=== PATIENT | male | born 1990 | race Caucasian/White ===

== ENCOUNTER 2021-04-02 20:21 | Emergency (ER) | payer MEDICAID, SELFPAY ==
[2021-04-02 21:01] VITALS: BP 110/58; PULSE 58; RESP 16; TEMP 36.6; O2SAT 97; BMI 29.2
[2021-04-02 22:55] VITALS: BP 120/59; PULSE 64; RESP 16; TEMP 36.9; O2SAT 100
--- NOTE | 2021-04-02 23:18 | ED.SKABFB ---
HPI - Skin/Abscess/Foreign Bdy General Chief complaint: Skin/Abscess/Foreign Body Stated complaint: swollen leg Time Seen by Provider: 04/02/21 23:18 Source: patient and sales merchandising specialist Mode of arrival: ambulatory History of Present Illness HPI narrative: 30-year-old male with presentation of a small reddened and painful area on the left anterior thigh that is been ongoing for 4 days and patient denies any associated fever, chills. Patient states that he has had an ongoing lump there on his leg since he had a fracture 12 years ago. Related Data Previous Rx's Medication Instructions Recorded cephalexin 500 mg PO Q12H 5 Days #10 cap 04/03/21 Allergies Allergy/AdvReac Type Severity Reaction Status Date / Time No Known Allergies Allergy Verified 04/02/21 21:00 [No Known Allergies*] Review of Systems Review of Systems: Pertinent positives and negatives as stated in HPI 10 point review of systems otherwise negative. 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 GENERAL: Well developed, well nourished, in no acute distress. HEAD: Normocephalic/atraumatic EYES: PERRLA, EOMI LUNGS: Normal breath sounds. No adventitious sounds or accessory muscle use. SpO2<100> CARDIOVASCULAR: Regular rate and rhythm without noted murmurs ABDOMEN: Soft, non-tender, non-distended with bowel sounds. SKIN: Inspection of the skin reveals no rashes, but there is a area of induration at the left anterior thigh without appreciable fluctuance NEUROLOGIC: Alert and oriented x 4. Strength and sensation to light touch were grossly intact x 4. Course Course Course Narrative: 30-year-old male with history and clinical presentation consistent with likely infected sebaceous/ lipoma or possible folliculitis that is only indurated and not fluctuant. Who was explained to the patient that he would need to go home with antibiotics and apply warm moist compresses. Discharge Plan Discharge Clinical Impression: Abscess of skin or subcutaneous tissue Patient Disposition: Home, Self-Care Instructions: Abscess (ED), Warm Compress or Soak (ED) Additional Instructions: 1. recomiende el uso de Tylenol / ibuprofeno de venta samantha seg?n sea necesario para controlar el dolor. 2. Por favor, lang un seguimiento con el proveedor de atenci?n primaria en los pr?ximos 2-3 d?as para farzad reevaluaci?n y un manejo ambulatorio adicional. Regrese a la bob de emergencias por un empeoramiento leyx de los s?ntomas. Prescriptions: New cephalexin 500 mg capsule 500 mg PO Q12H 5 Days Qty: 10 RF: 0 Referrals: Physician,Unknown [Primary Care Provider] - 2 days Print Language: Mongolian
[2021-04-03] MEDS: cephALEXin 500 MG CAPSULE PO (00:21)
== END 2021-04-03 00:58 | disposition home or self-care (01) ==
PROVIDERS: Emergency Provider Student in an Organized Health Care Education/Training Program
DX: L02.416 Cutaneous abscess of left lower limb (principal); F17.210 Nicotine dependence, cigarettes, uncomplicated
CPT/HCPCS: 99283; 99284

== ENCOUNTER 2021-10-22 10:28 | Emergency (ER) | payer MEDICAID, SELFPAY ==
[2021-10-22 10:36] VITALS: BP 135/59; PULSE 97; RESP 18; TEMP 37.3; O2SAT 99; BMI 22.3
[2021-10-22 11:01] LABS: COVID-19 Test Positive (Negative); IDNOW Serial# 55D5AD1C
--- NOTE | 2021-10-22 11:28 | ED_ITS ---
HPI - URI/Sore Throat General Chief Complaint: Upper Respiratory Symptoms Stated Complaint: fever, headache Time Seen by Provider: 10/22/21 11:21 Source: patient Mode of arrival: ambulatory Limitations: language barrier (Sudanese Speaking ) History of Present Illness HPI Narrative: 31-year-old male presenting to the ED with URI symptoms since last night. He reports that he was playing his PlayStation and he was feeling completely fine although when he went to stand up he felt like he could not get up due to he was having back pain then it took him a few minutes then he was able to stand up and since then he has been having chills, sweats, sore throat and body aches along with back pain which has improved at this time. Denies recent travel or sick contacts. Reports that he is not vaccinated to COVID vaccine. Denies any measured fevers, dizziness, headache, neck pain/stiffness, trouble swallowing or breathing, chest pain or shortness of breath, palpitations, nausea/vomiting/diarrhea constipation, rashes or any other symptoms complaints or concerns at this time. MD elicited complaint: sore throat and other (Chills, sweats, body aches and lower back pain) Onset (ago): day(s) (Since last night) Consistency: constant, improved and progressively worsening Severity: mild Able to tolerate fluids by mouth: Yes Exacerbating factors: swallowing Relieving factors: nothing Associated symptoms: chills, myalgias and sore throat Treatments prior to arrival: none Related Data Previous Rx's Medication Instructions Recorded cephalexin 500 mg capsule 500 mg PO Q12H 5 Days #10 cap 04/03/21 acetaminophen 500 mg tablet 1,000 mg PO QID PRN #14 tab 10/22/21 (Tylenol Extra Strength) azithromycin 250 mg tablet See Rx Instructions .ROUTE 10/22/21 .COMPLEX #6 tab cyclobenzaprine 10 mg tablet 10 mg PO Q8H PRN #14 tab 10/22/21 ibuprofen 800 mg tablet 800 mg PO Q8H PRN #14 tab 10/22/21 Allergies Allergy/AdvReac Type Severity Reaction Status Date / Time No Known Allergies Allergy Verified 04/02/21 21:00 [No Known Allergies*] Review of Systems Review of Systems: Constitutional : Positive chills/fatigue/malaise/sweats No Weight loss, No Fever, ENT/Mouth : Positive sore throat, No Hearing loss, No Ear Pain, No Nasal Congestion, No Sinus Pain, No Hoarseness, No Rhinorrhea, No Swallowing Difficulty Eyes: No Eye Pain, No Swelling, No Redness, No Foreign Body, No Discharge, No Vision Changes Cardiovascular : No Chest Pain, No SOB, No Dyspnea on Exertion, No Orthopnea, No Edema, No Palpitations Respiratory : No Cough, No Sputum, No Wheezing, No Smoke Exposure, No Dyspnea Gastrointestinal : No Nausea, No Vomiting, No Diarrhea, No Constipation, No abdominal Pain, No Hematochezia, No Melena Genitourinary : no irregular bleeding, No Dysuria, No Urinary Frequency, No Hematuria, No Urinary Incontinence, No Urgency, No Flank Pain, No Urinary Flow Changes, No Hesitancy Musculoskeletal : Positive lower back pain, positive myalgias No joint pain, No Joint Swelling Skin : No Skin Lesions, No rash Neuro : No Weakness, No Numbness, No Paresthesias, No Loss of Consciousness, No Dizziness, No Headache Psych : No Anxiety/Panic, No Depression, No SI/HI/AH/VH, No Social Issues, Heme/Lymph: No Bruising, No Bleeding,No Lymphadenopathy Endocrine : No Polyuria, No Polydipsia, No Temperature Intolerance Yes all other systems are reviewed and are negative [facility] Past Medical History Attestation statement: The following information was validated with the patient. 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 Blood pressure 135/59. Heart rate normal. Respiration rate normal. Temperature normal. Oxygen saturation normal. Appearance: Alert. Oriented X3. No acute distress. Head: Normal external exam. Normocephalic. Atraumatic. Eyes: PERRLA. EOMI. Conjunctiva and sclera normal. Eyelids normal. ENT: EAC normal. TM's Normal. Pharynx normal. Uvula midline. Moist mucous membranes. No trismus noted. No drooling noted. No muffled voice noted. Neck: Normal inspection. Neck supple. FROM. No adenopathy. Thyroid Normal. No meningeal signs. No neck mass noted. CVS: Normal heart rate and rhythm. Heart sound normal. Pulses normal throughout. No murmurs/rales/gallops. Respiratory: No respiratory distress. Painless inspiration. Breath sounds normal. No wheezes/rales/rhonchi noted. Chest nontender. No accessory muscle usage noted or decreased air movement noted. Abdomen: Soft and nontender. Bowel sounds normal in all 4 quadrants. No distention noted. No organomegaly noted. No visible injury noted. Back: Full range of motion noted. No rashes/lesion/induration/fluctuance or s igns of infection noted. Skin: Skin warm and dry. Normal skin color. Normal skin turgor. No rashes/lesions/lacerations noted. Extremities: Extremities exhibit normal range of motion. Extremities nontender. Neuro: Oriented X 3. No motor deficit. No sensory deficit. Reflexes normal. Normal steady gait. No focal neuro deficits noted. Vascular: + radial pulses/+ 2 distal pedal pulses/+2 dorsalis pedis b/l. Normal cap refill. No cyanosis noted to upper extremity nails and lower extremity toes nails. Course Course Course Narrative: 31-year-old male presenting to the ED with URI symptoms since last night. He reports that he was playing his PlayStation and he was feeling completely fine although when he went to stand up he felt like he could not get up due to he was having back pain then it took him a few minutes then he was able to stand up and since then he has been having chills, sweats, sore throat and body aches along with back pain which has improved at this time. Denies recent travel or sick contacts. Reports that he is not vaccinated to COVID vaccine. Denies any measured fevers, dizziness, headache, neck pain/stiffness, trouble swallowing or breathing, chest pain or shortness of breath, palpitations, nausea/vomiting/diarrhea constipation, rashes or any other sympt oms complaints or concerns at this time. Patient is positive for COVID. Lungs clear to auscultation. CV RRR. Abdomen is soft and nontender. Vital signs are stable within normal limits. Will DC home with symptomatic treatment instructions follow-up with PCP and self isolate per CDC guidelines and to return if any new or worsening symptoms. Patient understands agrees with this plan. MDM - URI/Sore Throat Medical Records Attestation: I reviewed the patient's medical records. Lab Data Attestation: I reviewed the patient's lab results. Labs: Lab Results 10/22/21 Range/Units 10:42 COVID-19 ([facility]ITO) Positive A (Negative) COVID-19 Clin Com See Note Discharge Plan Discharge Clinical Impression: COVID-19 Patient Disposition: Home, Self-Care Instructions: COVID-19 (Coronavirus Disease 2019) (ED) Additional Instructions: Please follow CDC guidelines for restrictions. Prescriptions: New cyclobenzaprine 10 mg tablet 10 mg PO Q8H PRN (Reason: Muscle spasm) Qty: 14 RF: 0 azithromycin 250 mg tablet See Rx Instructions .ROUTE .COMPLEX Qty: 6 RF: 0 ibuprofen 800 mg tablet 800 mg PO Q8H PRN (Reason: pain) Qty: 14 RF: 0 acetaminophen [Tylenol Extra Strength] 500 mg tablet 1,000 mg PO QID PRN (Reason: fever or pain) Qty: 14 RF: 0 No Action cephalexin 500 mg capsule 500 mg PO Q12H 5 Days Qty: 10 RF: 0 Referrals: Physician,None [Primary Care Provider] - 2 days (your pcp) Stand Alone Forms: Work/School Release Print Language: Sudanese
== END 2021-10-22 11:51 | disposition home or self-care (01) ==
LOC: HO.ED 11:36
PROVIDERS: Emergency Provider Emergency Medicine Emergency Medical Services
DX: U07.1 COVID-19 (principal); F17.200 Nicotine dependence, unspecified, uncomplicated
CPT/HCPCS: 87635; 99283

== ENCOUNTER 2022-04-01 19:01 | Emergency (ER) | payer MEDICAID, SELFPAY ==
[2022-04-01 19:34] VITALS: BP 139/83; PULSE 59; RESP 18; TEMP 36.9; O2SAT 100; BMI 27.1
--- NOTE | 2022-04-01 21:02 | ED.DENTAL ---
HPI - Dental/Oral General Chief complaint: Dental/Oral Stated complaint: L facial pain Time Seen by Provider: 04/01/22 21:02 Source: patient Mode of arrival: ambulatory Limitations: no limitations History of Present Illness MD Complaint: tooth pain Location: Tooth # (16) Onset (ago): week(s) (1) Duration: worsening Severity: severe Relieving factors: nothing Exacerbating factors: chewing, cold, heat and drinking fluids Context: history of dental caries and poor dental care Associated symptoms: gum swelling and ear pain Treatment prior to arrival: other (ibuprofen) Related Data Previous Rx's Medication Instructions Recorded cephalexin 500 mg capsule 500 mg PO Q12H 5 days #10 caps 04/03/21 acetaminophen 500 mg tablet 1,000 mg PO QID PRN fever or pain 10/22/21 (Tylenol Extra Strength) #14 tabs azithromycin 250 mg tablet See Rx Instructions PO .COMPLEX #6 10/22/21 tabs cyclobenzaprine 10 mg tablet 10 mg PO Q8H PRN Muscle spasm #14 10/22/21 tabs ibuprofen 800 mg tablet 800 mg PO Q8H PRN pain #14 tabs 10/22/21 amoxicillin 875 mg-potassium 1 tab PO BID #14 tabs 04/01/22 clavulanate 125 mg tablet hydrocodone 5 mg-acetaminophen 325 1 tab PO Q6H PRN pain #6 tabs 04/01/22 mg tablet Allergies Allergy/AdvReac Type Severity Reaction Status Date / Time No Known Allergies Allergy Verified 04/01/22 19:39 [No Known Allergies*] Review of Systems Review of Systems: Constitutional : No Fever, No Chills ENT/Mouth : No swallowing difficulty, no change in voice, positive dental pain, positive jaw pain, positive facial swelling Eyes: No Eye Pain, No Swelling Cardiovascular : No Chest Pain, No SOB Respiratory : No Cough, No Sputum Gastrointestinal : No Nausea, No Vomiting, No Diarrhea Genitourinary : No Dysuria Musculoskeletal : No Myalgias Skin : No rash Neuro : No Weakness, No Numbness, No Headache PMFSH Past Medical History Attestation statement: The following information was validated with the patient. Medical History 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 Leg fracture, left Social History Social History Alcohol intake: never Patient Tobacco Use Status: Current everyday Tobacco user Advance Directives: No Advance Directives Information Provided: No Physical Exam Vital Signs: Vital Signs: Last Vital Signs Temp 98.5 F 04/01/22 19:34 Pulse 59 04/01/22 19:34 Resp 18 04/01/22 19:34 BP 139/83 04/01/22 19:34 Pulse Ox 100 04/01/22 19:34 O2 Del Method 04/01/22 19:34 BMI result Body Mass Index 27.1 Appearance: Alert. Oriented X3. No acute distress. Eyes: Pupils equal, round and reactive to light. ENT: Pharynx normal. L TM normal, L upper L molar last molar ttp along molar with mild gum fluctuance ttp no over abscess no trismus poor dentition Neck: Normal inspection. Neck supple. no swelling CVS: Normal heart rate and rhythm. Pulses normal. Respiratory: No respiratory distress. Abdomen: Soft and nontender. Skin: Skin warm and dry. Normal skin color. Normal skin turgor. Extremities: No lower extremity edema. Neuro: Oriented X 3. No motor deficit. No sensory deficit. MDM - Dental/Oral MDM Narrative Medical decision making narrative: 31 yo male with hx of poor dentition here with 1 week of worsening dental pain now with dental infection - no concern for deeper space infectino will need antibiotics and I do believe given the way his tooth appears he is in a moderate to severe amount of pain will give short course of analgesia, he was instructed to see dentist on Monday Discharge Plan Discharge Clinical Impression: Dental caries, Toothache, Infected tooth Patient Disposition: Home, Self-Care Instructions: Toothache (ED) Additional Instructions: return to ED for any worsening symptoms or concerns you need to see a dentist first thing Monday Prescriptions: New hydrocodone-acetaminophen 5-325 mg tablet 1 tab PO Q6H PRN (Reason: pain) Qty: 6 0RF Rx Instructions: partial fill okay; Partial Fill upon patient request. amoxicillin-pot clavulanate 875-125 mg tablet 1 tab PO BID Qty: 14 0RF No Action cephalexin 500 mg capsule 500 mg PO Q12H 5 Days Qty: 10 0RF cyclobenzaprine 10 mg tablet 10 mg PO Q8H PRN (Reason: Muscle spasm) Qty: 14 0RF azithromycin 250 mg tablet See Rx Instructions .ROUTE .COMPLEX Qty: 6 0RF Rx Instructions: take 500 mg today (day 1), then 250 mg for 4 days (days 2-5) ibuprofen 800 mg tablet 800 mg PO Q8H PRN (Reason: pain) Qty: 14 0RF acetaminophen [Tylenol Extra Strength] 500 mg tablet 1,000 mg PO QID PRN (Reason: fever or pain) Qty: 14 0RF
[2022-04-01 21:47] VITALS: BP 148/89; PULSE 51; RESP 18; TEMP 36; O2SAT 100
[2022-04-01] MEDS: Amoxicillin/Potassium Clav 875 MG TABLET PO (21:48)
[2022-04-01] MEDS: HYDROcodone Bit/Acetam 5/325 TABLET 1 TAB PO (21:48)
== END 2022-04-01 21:56 | disposition home or self-care (01) ==
PROVIDERS: Emergency Provider Emergency Medicine
DX: K02.9 Dental caries, unspecified (principal); R51.9 Headache, unspecified; K08.89 Other specified disorders of teeth and supporting structures; F17.200 Nicotine dependence, unspecified, uncomplicated; Z79.899 Other long term (current) drug therapy; Z71.6 Tobacco abuse counseling
CPT/HCPCS: 99283; 99284

== ENCOUNTER 2022-06-20 05:33 | Emergency (ER) | payer MEDICAID, SELFPAY ==
[2022-06-20 06:09] VITALS: BP 141/82; PULSE 57; RESP 17; TEMP 36.6; O2SAT 100; BMI 28.5
== END 2022-06-20 09:05 | disposition left against medical advice (07) ==
PROVIDERS: Emergency Provider Emergency Medicine
DX: K08.89 Other specified disorders of teeth and supporting structures (principal)
CPT/HCPCS: 99281

== ENCOUNTER 2025-05-05 11:29 | Emergency (ER) | payer OTHER, SELFPAY ==
--- NOTE | ~2025-05-05 | US_ITS ---
EXAMINATION: US TRIPLEX LOWER EXTREMITY, LEFT CLINICAL INFORMATION: Left lower extremity edema and pain. COMPARISON: None available. TECHNIQUE: Color-flow triplex imaging with spectral analysis and compression Doppler were performed on the left lower extremity. FINDINGS: Noncompressible occlusive thrombus is noted in the left popliteal vein. The visualized common femoral vein, superficial femoral vein, profunda femoral vein, and midcalf peroneal and posterior tibial venous segments show no evidence of deep venous thrombosis. There is no Sutton's cyst. US/US venous duplex LE LT IMPRESSION: POSITIVE DVT left lower extremity popliteal vein. This critical result was communicated to Dr. Espitia of the [facility] via secure text at 3:53 PM, 05/05/2025. Electronically signed by: Ramy Gates MD 05/05/2025 03:53 PM EDT
--- NOTE | ~2025-05-05 | XR_ITS ---
EXAMINATION: XR CHEST 2 VIEWS HISTORY: SOB COMPARISON: Comparison is made with the prior examination dated 04/03/2018. FINDINGS: PA and lateral views of the chest are submitted. The lungs are expanded and clear. There is no pleural effusion, pneumothorax, or pulmonary vascular congestion. The heart is normal in size. The bones are intact. XR/XR chest 2V IMPRESSION: No acute cardiopulmonary abnormality. Electronically signed by: Crow Esquivel MD 05/05/2025 12:49 PM EDT
--- NOTE | 2025-05-05 11:39 | ECG_ITS ---
Test Reason : CP Blood Pressure : */* mmHG Vent. Rate : 75 BPM Atrial Rate : 75 BPM P-R Int : 140 ms QRS Dur : 94 ms QT Int : 338 ms P-R-T Axes : 61 14 56 degrees QTcB Int : 377 ms Normal sinus rhythm Normal ECG When compared with ECG of 03-Apr-2018 03:04, No significant change was found Referred By: Stefania Harrell Electronically Signed By: ABEBA BUSH
[2025-05-05 11:56] VITALS: BP 162/80; PULSE 72; RESP 16; TEMP 37; O2SAT 98; BMI 27.1
--- NOTE | 2025-05-05 11:59 | ED_ITS ---
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 Patient states he is having leg pain when he walks and swelling in the back of the knee worse when he walks. No fevers or chills, no ongoing chest pain no dyspnea. Patient did endorse in triage that he has occasional intermittently chest pain he is currently chest pain-free. No pleurisy Related Data Previous Rx's ?Medication ?Instructions ?Recorded cephalexin 500 mg capsule 500 mg PO Q12H 5 days #10 ca ps 04/03/21 acetaminophen 500 mg tablet 1,000 mg (2 x 500 mg) PO Q ID PRN 10/22/21 (Tylenol Extra Strength) fever or pain #14 tabs azithromycin 250 mg tablet See Rx Instructions PO .COM PLEX #6 10/22/21 tabs cyclobenzaprine 10 mg tablet 10 mg PO Q8H PRN Muscle s pasm #14 10/22/21 tabs ibuprofen 800 mg tablet 800 mg PO Q8H PRN pain #14 t abs 10/22/21 amoxicillin 875 mg-potassium 1 tab PO BID #14 tabs 10/23 clavulanate 125 mg tablet hydrocodone 5 mg-acetaminophen 325 1 tab PO Q6H PRN pa in #6 tabs 04/01/22 mg tablet apixaban 5 mg tablet (Eliquis) 5 mg PO BID #90 tabs Allergies Allergy/AdvReac Type Severity Reaction Status Date / Time No Known Allergies (No Known Allergy Verified 05/05/25 11:58 Allergies*) Review of Systems 2 Constitutional: Constitutional: Reports as per [facility] Past Medical History Medical History 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 Leg fracture, left Social History Social History Alcohol intake: never Patient Tobacco Use Status: Former Tobacco user Smoked in Last 30 Days: Yes Use of substances other than those prescribed or required for medical reasons: No Advance Directives: No Advance Directives Information Provided: Yes Physical Exam ED Vital Signs: Vital Signs - 24 hr 05/05/25 11:56 05/05/25 14:20 Temperature 98.6 F Pulse Rate 72 54 Respiratory Rate 16 13 Blood Pressure 162/80 H 123/73 Pulse Oximetry 98 100 Oxygen Delivery Method Room Air Room Air BMI result Body Mass Index 32.0 Const Other: * Gen: ?Overall well-appearing patient * HEENT: PERRLA, EOMI, MMM, * Neck: Supple, no LAD * CV: RRR, no obvious murmurs appreciated * Resp: ?No wheezing rales rhonchi no stridor moving air well * Abd: ?Bowel sounds are present, no tenderness no rebound no rigidity * MSK: Full range of motion left hip, left knee, some fullness and tenderness in the popliteal fossa, some minimal swelling of the left calf, distal pulses intact bilateral lower extremities * Skin: Warm, dry, intact, * Neuro: ?Alert and oriented x3, moving upper and lower extremities symmetrically, no obvious facial asymmetry noted Course Course Course Narrative: RME performed by Stefania Harrell PA-C. Patient is a 34 year old assigned male at presenting to the emergency department with shortness of breath. Patient states he has been having left sided calf pain and now having shortness of breath. Detailed physical exam and review of systems are deferred to the oven laborer. EKG, labs, imaging ordered. Patient placed back in the waiting room pending room availability and results. Medications Administered Discontinued Medications Generic Name Dose Route Start Last Admin Trade Name Asadq PRN Reason Stop Dose Admin Dexamethasone 10 mg 05/05/25 14:03 05/05/25 14:13 Dexamethasone 2 Mg Tablet PO 05/05/25 14:04 10 mg ONCE ONE Administration Ketorolac Tromethamine 15 mg 05/05/25 14:03 05/05/25 14:13 Ketorolac Tromethamine 15 Mg/Ml Vial IM 05/05/25 14:04 15 mg ONCE ONE Administration Medical Decision Making Medical Decision Making MDM Narrative: Patient presented with pain and swelling of the left lower extremity remote surgery 17 years ago does quite a bit of driving and sitting, physical examination was slight swelling of the left lower extremity, we will obtain ultrasound to evaluate for DVT, possibly Sutton's cyst, distal pulses intact, he also complained of intermittent chest pain but no pleurisy has had no hypoxia tachycardic to suspect PE. 16:00 ultrasound positive for popliteal vein DVT will start on blood thinners and discharge Differential Diagnosis Differential Diagnoses: The differential diagnosis associated with the presentation includes (DVT, PE, ACS, pneumonia, CHF) Admission/Observation Consideration of admission/observation: Escalation of care including admission/observation considered 2022 Emergency Medicine Coding Guide from [employer] on 05/05/2025 All calculations should be rechecked by clinician prior to use RESULT SUMMARY: 5 Estimated Level of Service Problems: Moderate (4) Risk: High (5) Data: Extensive (5) NARRATIVE MDM: This patient's problem complexity is Moderate as patient: has a new undiagnosed problem with uncertain prognosis but that could be serious. This patient's risk is High due to: overall presentation requiring evaluation for a potentially High-risk process. This patient's data complexity is Extensive due to: -multiple tests ordered/reviewed -independent interpretation of imaging or EKG INPUTS: Number and Complexity ?> 5 = 4: undiagnosed new problem, uncertain outcome (e) Risk level ?> 4 = High Tests ordered ?> 3 = >= Tests results reviewed (excluding labs) ?> 3 = >= Prior external notes reviewed ?> 0 = 0 Assessment requiring and independent historian ?> 0 = No Independent interpretation of tests ?> 1 = Yes Discussed management/test interpretation w/external professional ?> 0 = No Lab Data MDM Lab Attestation statement: I reviewed the patient's lab results. 05/05/25 12:11 05/05/25 12:11 Labs: Lab Results 05/05/25 Range/Units 12:11 WBC 9.0 (4.8-10.8) X10*3/uL RBC 4.76 (4.60-5.80) X10*6/uL Hgb 14.7 (14.0-18.0) g/dl Hct 43.1 (42.0-52.0) % MCV 90.5 (80.0-98.0) fL MCH 30.9 (27.0-33.0) pg MCHC 34.1 (31.0-36.0) g/dl RDW 12.9 (11.0-16.0) % Plt Count 160 (160-400) X10*3/uL MPV 12.0 (9.4-12.4) fL Immature Gran % (Auto) 0.4 (0.0-0.4) % Neut % (Auto) 64.4 (45-73) % Lymph % (Auto) 22.1 (20-40) % Nicollet % (Auto) 8.5 (2-11) % Eos % (Auto) 3.9 (0-4) % Baso % (Auto) 0.7 (0-2) % Lymph # (Auto) 2.0 (1.2-4.9) X10*3/uL Nicollet # (Auto) 0.8 (0.1-1.2) X10*3/uL Eos # (Auto) 0.4 (0.0-0.4) X10*3/uL Baso # (Auto) 0.1 (0.0-0.2) X10*3/uL Abs Immat Gran (auto) 0.04 H (0.00-0.03) X10*3/uL Absolute Neuts (auto) 5.8 (2.0-8.3) x10*3/uL Absolute Nucleated RBC 0.000 (0.0-0.012) X10*3/uL Nucleated RBC % (auto) 0.0 (0.0-0.2) /100WBC Sodium 140 (135-145) mmol/L Potassium 3.8 (3.3-5.1) mmol/L Chloride 106 (96-108) mmol/L Carbon Dioxide 25 (22-29) mmol/L Anion Gap 13 (12-20) BUN 16 (9-16) mg/dL Creatinine 0.90 (0.5-1.4) mg/dL Estim Creat Clear Calc 144.7 Estimated GFR > 60 Random Glucose 109 (60-115) mg/dL Calcium 9.2 (8.4-10.2) mg/dL Magnesium 1.9 (1.6-2.6) mg/dL Total Bilirubin 0.8 (0.0-1.0) mg/dL AST 21 (5-37) U/L ALT 25 (0-40) U/L Alkaline Phosphatase 102 (39-117) U/L Troponin I High Sens < 2.7 (<3.5-35.0) ng/L B-Natriuretic Peptide < 10 (<100) pg/mL Total Protein 7.6 (6.5-8.0) g/dL Albumin 4.4 (3.5-5.0) g/dL Influenza Type A (PCR) NEGATIVE (Negative) Influenza Type B (PCR) NEGATIVE (Negative) RSV RNA Qual (PCR) NEGATIVE (Negative) SARS-CoV-2 RNA (RT-PCR) NEGATIVE (Negative) Independent Interpretation I performed an independent interpretation of an: EKG (75 beats per minute, ST- elevation V1 and V2 very similar to his prior, no reciprocal changes, nothing to suspect underlying ACS) and Plain X-Ray (My independent chest xray interpretation: Lungs: Lungs are clear bilaterally without evidence of focal consolidation, pleural effusion, or pneumothorax. Cardiac silhouette is unremarkable, no obvious mediastinal widening, no obvious bony abnormalities such as fractures. Impression: Normal chest X-r) Radiology Impression Discussion of test interpretation with radiology: I have reviewed the radiologist's reading. (IMPRESSION: POSITIVE DVT left lower extremity popliteal vein. ) Tests considered The following testing was considered but not selected: CT angio chest Prescription Management I considered prescription management with: Pain Medication Discharge Plan Discharge Clinical Impression: DVT of leg (deep venous thrombosis) Qualifiers: Affected thrombotic vein of extremity: popliteal Chronicity: unspecified L aterality: left Qualified Code(s): I82.432 - Acute embolism and thrombosis of left popliteal vein Patient Disposition: Home, Self-Care Additional Instructions: You were evaluated with swelling behind your left knee and you do have DVT of the popliteal vein, starting her on medication Eliquis 10 mg twice daily for 7 days followed by 5 mg twice daily, you do need to have primary care physician involved in your care, please ask nursing to provide her with outpatient resources if you do not have a PCP, you may need to be on anticoagulants for at least 6 months and so he will need follow up. Any chest pain problems breathing any other concerns come back to the ER. Do not take Motrin/ibuprofen or Naprosyn while taking Eliquis. Be mindful that you can bleed more while taking this medication. And also you have to quit smoking because that is 1 of the risk factors for developing blood clots. Prescriptions: New Eliquis 5 mg tablet 5 mg PO BID Qty: 90 0RF Rx Instructions: 10 mg twice daily x7 days followed by 5 mg twice daily No Action cephalexin 500 mg capsule 500 mg PO Q12H 5 Days Qty: 10 0RF hydrocodone-acetaminophen 5-325 mg tablet 1 tab PO Q6H PRN (Reason: pain) Qty: 6 0RF Rx Instructions: partial fill okay; Partial Fill upon patient request. amoxicillin-pot clavulanate 875-125 mg tablet 1 tab PO BID Qty: 14 0RF cyclobenzaprine 10 mg tablet 10 mg PO Q8H PRN (Reason: Muscle spasm) Qty: 14 0RF azithromycin 250 mg tablet See Rx Instructions .ROUTE .COMPLEX Qty: 6 0RF Rx Instructions: take 500 mg today (day 1), then 250 mg for 4 days (days 2-5) ibuprofen 800 mg tablet 800 mg PO Q8H PRN (Reason: pain) Qty: 14 0RF acetaminophen [Tylenol Extra Strength] 500 mg tablet 1,000 mg PO QID PRN (Reason: fever or pain) Qty: 14 0RF Print Language: Serbian
[2025-05-05 12:16] LABS: MANUAL DIFF FLAG NO
[2025-05-05 12:20] LABS: Hematocrit 43.1 % (42.0-52.0); Hemoglobin 14.7 g/dl (14.0-18.0); Imm Gran Abs Auto 0.04 X10*3/uL (0.00-0.03); Imm Gran Pct Auto 0.4 % (0.0-0.4); Lymphocytes Absolute Auto 2.0 X10*3/uL (1.2-4.9); Mean Corpuscular HGB Conc 34.1 g/dl (31.0-36.0); Mean Corpuscular Hemoglobin 30.9 pg (27.0-33.0); Mean Corpuscular Volume 90.5 fL (80.0-98.0); NRBC Abs Auto 0.000 X10*3/uL (0.0-0.012); NRBC Pct Auto 0.0 /100WBC (0.0-0.2); Platelet Count 160 X10*3/uL (160-400); Red Blood Count 4.76 X10*6/uL (4.60-5.80); White Blood Count 9.0 X10*3/uL (4.8-10.8)
[2025-05-05 12:28] VITALS: BMI 32.0
[2025-05-05 12:36] LABS: Alanine Aminotransferase 25 U/L (0-40); Albumin Level 4.4 g/dL (3.5-5.0); Alkaline Phosphatase 102 U/L (39-117); Anion Gap 13 (12-20); Aspartate Amino Transferase 21 U/L (5-37); Blood Urea Nitrogen 16 mg/dL (9-16); Calcium 9.2 mg/dL (8.4-10.2); Carbon Dioxide 25 mmol/L (22-29); Chloride 106 mmol/L (96-108); Creatinine Clr Calc Pharmacy 144.7; Estimated Glomerular Filt Rate > 60; Magnesium 1.9 mg/dL (1.6-2.6); Potassium 3.8 mmol/L (3.3-5.1); Sodium 140 mmol/L (135-145); Total Protein 7.6 g/dL (6.5-8.0)
[2025-05-05 12:40] LABS: B Type Natriuretic Peptide < 10 pg/mL (<100)
[2025-05-05 12:42] LABS: Troponin-I High Sensitivity < 2.7 ng/L (<3.5-35.0)
[2025-05-05 12:58] LABS: Resp Syncy Virus RNA Qual PCR NEGATIVE (Negative); SARS COV2 PCR INHOUSE NEGATIVE (Negative)
--- NOTE | 2025-05-05 13:37 | PC.NURSE ---
patient a&ox3, vss, hall monitor intact, sinus magda on monitor. pt awaiting provider, dylan santana within reach, plan of care ongoing
--- NOTE | 2025-05-05 14:17 | PC.NURSE ---
pt medicated per order
[2025-05-05 14:20] VITALS: BP 123/73; PULSE 54; RESP 13; O2SAT 100
[2025-05-05 17:03] VITALS: BP 125/89; PULSE 66; RESP 16; O2SAT 97
[2025-05-05 17:04] VITALS: BP 125/89; PULSE 66; RESP 16; TEMP 36.4; O2SAT 97
== END 2025-05-05 17:07 | disposition home or self-care (01) ==
PROVIDERS: Physician Assistant Medical; Emergency Provider Emergency Medicine
DX: I82.432 Acute embolism and thrombosis of left popliteal vein (principal); M79.89 Other specified soft tissue disorders; M25.562 Pain in left knee; M79.605 Pain in left leg
CPT/HCPCS: 71046; 80053; 83735; 83880; 84484; 85025; 87637; 93005; 93971; 96372; 99284; J1885; J8540

== ENCOUNTER → 2025-05-05 11:39 | Outpatient (BNV) | payer OTHER, SELFPAY | PROVIDERS: Emergency Provider Emergency Medicine; Visit Provider Internal Medicine | DX: R07.9 Chest pain, unspecified (principal) | CPT/HCPCS: 93010 ==

== ENCOUNTER → 2025-05-05 12:00 | Outpatient (BNV) | payer OTHER, SELFPAY | PROVIDERS: Emergency Provider Emergency Medicine; Visit Provider Radiology Diagnostic Radiology | DX: I82.432 Acute embolism and thrombosis of left popliteal vein (principal); R06.02 Shortness of breath | CPT/HCPCS: 71046; 93971 ==